=== PATIENT | female | born 1940 | race Caucasian/White ===

== ENCOUNTER 2017-05-09 14:30 | Outpatient (CLI) | payer MEDICARE ==
[2017-05-09 18:26] LABS: BILIRUBIN,URINE NEGATIVE (NEGATIVE); PH,URINE 6.5 PH (5.0-7.5)
[2017-05-09 18:44] LABS: UR CULTURE IF IND INDICATED
== END 2017-05-09 14:31 | disposition home or self-care (01) ==
LOC: LAB.R 14:30
PROVIDERS: ATTEND Nurse Practitioner Family
DX: R30.0 Dysuria (principal)
CPT/HCPCS: 81001; 87086

== ENCOUNTER 2019-01-30 10:56 | Outpatient (CLI) | payer MEDICARE ==
--- NOTE | 2019-01-31 05:39 | XRAY Report ---
Reason: PAIN IN LEFT KNEE M25.562 Procedure Date: 01/30/2019 Accession Number: [id number] / [id number] Procedure: XRS - Knee 3 View LT CPT Code: FULL RESULT: EXAM: LEFT KNEE RADIOGRAPHY EXAM DATE: 01/30/2019 11:11 AM. CLINICAL HISTORY: PAIN IN LEFT KNEE M25. 562. COMPARISON: None. TECHNIQUE: 3 views. FINDINGS: Bones: No fracture seen. No acute osseous abnormality. Joints: Joint space narrowing which is most severe in the medial and patellofemoral compartments. Marginal osteophytes in all 3 compartments. No dislocation seen. No obvious joint effusion. Soft Tissues: Grossly unremarkable. IMPRESSION: 3 compartment degenerative joint disease. Kellgren Mykel Grade 3. Kellgren and Mykel classification of osteoarthritis: Grade 0: no radiographic features of osteoarthritis are present Grade 1: doubtful joint space narrowing (JSN) and possible osteophytic lipping Grade 2: definite osteophytes and possible JSN on anteroposterior weight-bearing radiograph Grade 3: multiple osteophytes, definite JSN, sclerosis, possible bony deformity Grade 4: large osteophytes, marked JSN, severe sclerosis and definite bony deformity RADIA
== END 2019-01-30 10:57 | disposition home or self-care (01) ==
LOC: DI.S 10:56
PROVIDERS: ATTEND Registered Nurse
DX: M17.12 Unilateral primary osteoarthritis, left knee (principal)

== ENCOUNTER 2024-03-05 07:00 | Outpatient (CLI) | payer MEDICARE ==
[2024-03-05 20:02] LABS: BILIRUBIN,URINE NEGATIVE (NEGATIVE); GLUCOSE, URINE (UA) NEGATIVE (NEGATIVE); KETONES,URINE (UA) NEGATIVE (NEGATIVE); LEUKOCYTE ESTERASE, URINE LARGE (NEGATIVE); NITRITE,URINE NEGATIVE (NEGATIVE); OCCULT BLOOD,URINE MODERATE (NEGATIVE); PROTEIN,URINE NEGATIVE (NEGATIVE); UROBILINOGEN,URINE 0.2 (NORMAL) E.U./dL (NORMAL)
[2024-03-05 20:05] LABS: CLARITY,URINE HAZY (CLEAR)
[2024-03-05 20:18] LABS: BACTERIA,URINE Moderate /HPF (None Seen); SQUAMOUS EPITHELIAL CELL,UR RARE Squamous (<= Few); WBC,URINE >25 /HPF (0-5)
== END 2024-03-05 23:59 | disposition home or self-care (01) ==
LOC: LAB.S 07:00
PROVIDERS: ATTEND Emergency Medicine
DX: R30.0 Dysuria (principal)
CPT/HCPCS: 81001; 87086; 87181